=== PATIENT | male | born 1970 | race African-American/Black ===

== ENCOUNTER 2017-11-13 19:37 | Emergency (ER) | payer OTHER, SELFPAY ==
[2017-11-13 20:24] LABS: #Basophils 0.1 thou/uL (0.0-0.2); #Eosinphils 0.1 thou/uL (0.0-0.7); #Lymphocytes 1.4 thou/uL (1.20-3.40); #Monocytes 0.4 thou/uL (0.11-0.59); #Neutrophils 3.2 thou/uL (1.40-6.50); %Basophils 1.6 % (0.0-1.0); %Eosinophils 2.4 % (0.0-10.0); %Monocytes 7.5 % (0.0-10.0); %Neutrophils 61.5 % (42.0-75.0); Hemoglobin 12.5 g/dL (14.0-18.0); Mean Corpuscular HGB CONC 33.5 g/dL (32.0-36.0); Mean Corpuscular Hemoglobin 30.9 pg (27.0-31.0); Mean Corpuscular Volume 92.3 fl (80.0-94.0); Mean Platelet Volume 7.5 fL (7.4-10.4); Platelet Count 283 thou/uL (130-400); RBC Distribution Width 11.8 % (11.5-14.5); Red Blood Cell (RBC) Count 4.06 mill/uL (4.70-6.10); White Blood Cell (WBC) Count 5.1 thou/uL (4.8-10.8)
[2017-11-13 20:46] LABS: Amphetamine Not Detected (NotDetected); Barbiturates Screen Not Detected (NotDetected); Benzodiazepine Screen Not Detected (NotDetected); Cocaine Metabolite Screen Detected (NotDetected); Medtox Control Line Valid? VALID (VALID); Medtox Reader # READER 1; Methadone Not Detected (NotDetected); Methamphetamine Not Detected (NotDetected); Opiate Screen Not Detected (NotDetected); Oxycodone Screen Not Detected (NotDetected); Phencyclidine (PCP) Not Detected (NotDetected); THC/Cannabinoid Screen Not Detected (NotDetected); Tricyclic Screen Not Detected (NotDetected)
[2017-11-13 20:46] LABS: ALT (SGPT) 11 U/L (8-55); AST (SGOT) 33 U/L (5-34); Albumin 4.2 g/dL (3.5-5.0); Alkaline Phosphatase 73 U/L (40-150); Anion Gap 9 mmol/L (10-20); BUN (Urea Nitrogen) 11 mg/dL (8.9-20.6); Bilirubin, Total 0.2 mg/dL (0.2-1.2); Calc. Creatinine Clearance 0 mL/min (70-130); Calcium 9.4 mg/dL (7.8-10.44); Carbon Dioxide 25 mmol/L (22-29); Chloride 108 mmol/L (98-107); Estimated GFR-MDRD Greater than 90; Globulin 3.2 g/dL (2.4-3.5); Glucose 93 mg/dL (70-105); Potassium 4.1 mmol/L (3.5-5.1); Protein, Total 7.4 g/dL (6.0-8.3); Sodium 138 mmol/L (136-145)
[2017-11-13 20:49] LABS: Acetaminophen Less than 6.0 mcg/mL (10.0-30.0); Alcohol Less than 10 mg/dL (Less than 10); Salicylate Less than 8.0 mg/dL (15.0-30.0)
[2017-11-13] MEDS ORDERED: traMADol HCl 50 MG TAB ONE (21:15)
[2017-11-13] MEDS ORDERED: Adacel (T-DAP) 0.5 ML VIAL ONE (21:15)
--- NOTE | 2017-11-18 15:10 | EKG ---
Test Reason : FACILITATE DIAGNOSIS Blood Pressure : / mmHG Vent. Rate : 050 BPM Atrial Rate : 050 BPM P-R Int : 156 ms QRS Dur : 104 ms QT Int : 434 ms P-R-T Axes : 017 002 -41 degrees QTc Int : 395 ms Sinus bradycardia RSR' or QR pattern in V1 suggests right ventricular conduction delay Voltage criteria for left ventricular hypertrophy Cannot rule out Septal infarct , age undetermined T wave abnormality, consider inferior ischemia Abnormal ECG Confirmed by JOSE RAUL GRIER, RYAN (13), news videotape editor CHARLENE SHAVER ([id number]) on 11/18/2017 3:09:45 PM Referred By: Confirmed By:RYAN BLUNT MD
== END 2017-11-14 01:48 ==
LOC: ERS 19:37
DX: T52.0X1A Toxic effect of petroleum products, accidental (unintentional), initial encounter (principal); T22.611A Corrosion of second degree of right forearm, initial encounter; T22.631A Corrosion of second degree of right upper arm, initial encounter; T20.56XA Corrosion of first degree of forehead and cheek, initial encounter; T26.51XA Corrosion of right eyelid and periocular area, initial encounter; T32.0 Corrosions involving less than 10% of body surface; F23 Brief psychotic disorder; F14.10 Cocaine abuse, uncomplicated; E11.9 Type 2 diabetes mellitus without complications; E78.5 Hyperlipidemia, unspecified; I10 Essential (primary) hypertension; M54.30 Sciatica, unspecified side; F31.9 Bipolar disorder, unspecified; F17.210 Nicotine dependence, cigarettes, uncomplicated; Z71.6 Tobacco abuse counseling; Z23 Encounter for immunization; Z79.4 Long term (current) use of insulin
CPT/HCPCS: 16020; 36415; 80053; 80306; 80307; 82550; 85025; 90471; 90715; 93005; 96360; 99406

== ENCOUNTER 2018-12-25 11:32 | Emergency (ER) | payer SELFPAY ==
--- NOTE | 2018-12-25 12:00 | RAD ---
CHEST 1 VIEW: Date: 12/25/18 HISTORY: Chest pain on and off. COMPARISON: 01/17/12. FINDINGS: Heart size is normal. The lungs are clear. IMPRESSION: No acute intrathoracic disease. Atherosclerosis of aorta. POS: [facility]
[2018-12-25 12:01] LABS: #Eosinphils 0.1 thou/uL (0.0-0.7); #Lymphocytes 1.4 thou/uL (1.20-3.40); #Monocytes 0.4 thou/uL (0.11-0.59); #Neutrophils 2.3 thou/uL (1.40-6.50); %Basophils 1.1 % (0.0-1.0); %Eosinophils 3.1 % (0.0-10.0); %Lymphocytes 32.5 % (21.0-51.0); %Monocytes 9.6 % (0.0-10.0); %Neutrophils 53.7 % (42.0-75.0); Hemoglobin 12.8 g/dL (14.0-18.0); Mean Corpuscular HGB CONC 31.8 g/dL (32.0-36.0); Mean Corpuscular Hemoglobin 29.2 pg (27.0-31.0); Mean Corpuscular Volume 91.9 fL (78.0-98.0); Mean Platelet Volume 7.4 fL (7.4-10.4); Platelet Count 320 thou/uL (130-400); Red Blood Cell (RBC) Count 4.39 mill/uL (4.70-6.10); White Blood Cell (WBC) Count 4.3 thou/uL (4.8-10.8)
[2018-12-25 12:24] LABS: ALT (SGPT) Less than 7 U/L (8-55); AST (SGOT) 16 U/L (5-34); Albumin 3.9 g/dL (3.5-5.0); Alkaline Phosphatase 71 U/L (40-150); Anion Gap 12 mmol/L (10-20); BUN (Urea Nitrogen) 11 mg/dL (8.9-20.6); Bilirubin, Total 0.3 mg/dL (0.2-1.2); Calc. Creatinine Clearance 0 mL/min (70-130); Calcium 9.4 mg/dL (7.8-10.44); Carbon Dioxide 24 mmol/L (22-29); Chloride 103 mmol/L (98-107); Estimated GFR-MDRD Greater than 90; Globulin 2.8 g/dL (2.4-3.5); Glucose 95 mg/dL (70-105); Potassium 4.1 mmol/L (3.5-5.1); Protein, Total 6.7 g/dL (6.0-8.3); Sodium 135 mmol/L (136-145)
--- NOTE | 2018-12-28 12:54 | EKG ---
Test Reason : Blood Pressure : / mmHG Vent. Rate : 072 BPM Atrial Rate : 072 BPM P-R Int : 162 ms QRS Dur : 086 ms QT Int : 390 ms P-R-T Axes : 057 -24 023 degrees QTc Int : 427 ms Normal sinus rhythm Minimal voltage criteria for LVH, may be normal variant Septal infarct , age undetermined Abnormal ECG Confirmed by JOSE RAUL GRIER, RYAN (13), make up editor CHARLENE SHAVER ([id number]) on 12/28/2018 12:54:26 PM Referred By: Confirmed By:RYAN BLUNT MD
== END 2018-12-25 12:47 | disposition home or self-care (01) ==
LOC: ERS 11:32
DX: F14.10 Cocaine abuse, uncomplicated (principal); R07.9 Chest pain, unspecified; E11.9 Type 2 diabetes mellitus without complications; E78.5 Hyperlipidemia, unspecified; I10 Essential (primary) hypertension; F31.9 Bipolar disorder, unspecified; F17.210 Nicotine dependence, cigarettes, uncomplicated; F20.9 Schizophrenia, unspecified
CPT/HCPCS: 36415; 71045; 80053; 84484; 85025; 93005

== ENCOUNTER 2022-01-04 19:10 | Inpatient (IN) | payer SELFPAY ==
[~2022-01-04 19:10] MED LIST: ISOVUE-370 76%-LOCM 1 ML ONE
[2022-01-04 20:03] LABS: #Eosinphils 0.1 thou/uL (0.0-0.7); #Lymphocytes 1.4 thou/uL (1.20-3.40); #Monocytes 0.5 thou/uL (0.11-0.59); #Neutrophils 6.5 thou/uL (1.40-6.50); %Basophils 0.5 % (0.0-1.0); %Eosinophils 0.7 % (0.0-10.0); %Monocytes 5.6 % (0.0-10.0); %Neutrophils 77.2 % (42.0-75.0); Hemoglobin 13.8 g/dL (14.0-18.0); Mean Corpuscular HGB CONC 33.4 g/dL (32.0-36.0); Mean Corpuscular Hemoglobin 31.4 pg (27.0-31.0); Mean Platelet Volume 8.2 fL (7.4-10.4); Platelet Count 231 thou/uL (130-400); RBC Distribution Width 12.1 % (11.5-14.5); Red Blood Cell (RBC) Count 4.39 mill/uL (4.70-6.10); White Blood Cell (WBC) Count 8.4 thou/uL (4.8-10.8)
[2022-01-04] MEDS ORDERED: Lorazepam 2 MG/ML VIAL ONE (20:06)
[2022-01-04 20:24] LABS: ALT (SGPT) Less than 7 U/L (8-55); AST (SGOT) 19 U/L (5-34); Albumin 4.1 g/dL (3.5-5.0); Alkaline Phosphatase 66 U/L (40-110); Anion Gap 12 mmol/L (10-20); BUN (Urea Nitrogen) 18 mg/dL (8.9-20.6); Bilirubin, Total 0.5 mg/dL (0.2-1.2); Calc. Creatinine Clearance 0 mL/min (70-130); Calcium 9.3 mg/dL (7.8-10.44); Carbon Dioxide 27 mmol/L (22-29); Chloride 105 mmol/L (98-107); Estimated GFR 80; Globulin 2.9 g/dL (2.4-3.5); Glucose 95 mg/dL (70-105); Lipase 13 U/L (8-78); Potassium 4.2 mmol/L (3.5-5.1); Sodium 140 mmol/L (136-145)
[2022-01-04] MEDS ORDERED: Morphine 4 MG/ML VIAL ONE (22:09)
[2022-01-04] MEDS ORDERED: Dextrose 5% in Water 1,000 ML IV PRN (22:52)
[2022-01-04] MEDS ORDERED: HumaLOG 300 UNITS/3 ML VIAL SC PRN ×2 (22:52)
[2022-01-04] MEDS ORDERED: Dextrose 50% Abboject 50 ML SYRINGE SLOW IVP PRN (22:52)
[2022-01-04] MEDS ORDERED: Morphine 2 MG/ML VIAL SLOW IVP PRN (22:54)
[2022-01-04] MEDS ORDERED: Lorazepam 2 MG/ML VIAL SLOW IVP PRN (22:56)
[2022-01-04] MEDS ORDERED: hydrALAZINE 20 MG/ML VIAL ONE (23:07)
[2022-01-05 00:39] VITALS: BMI 22.4
[2022-01-05] MEDS: Labetalol HCl 100 MG/20 ML VIAL SLOW IVP PRN ×3 (00:42→11:42)
[2022-01-05] MEDS: Potassium Chloride 10 MEQ in Dextrose 5%-Lactated Ringers 1,000 ML IV SCH ×2 (00:54→11:06)
[2022-01-05 01:33] LABS: Bacteria/HPF None Seen HPF (None Seen); Bilirubin Negative (Negative); Blood, Urine Negative (Negative); Clarity Clear (Clear); Glucose, Urine (Dipstick) Normal (Negative); Ketone, Urine 10 mg/dL (Negative); Leukocyte Negative Leu/uL (Negative); Nitrite Negative (Negative); Protein, Urine (Dipstick) 30 mg/dL (Neg-Trace); RBC/HPF 0-3 HPF (0-3); Specific Gravity, Urine 1.046 (1.002-1.036); Squamous Epithelial None Seen HPF (0-3); Urobilinogen Normal mg/dL (Less than 2); WBC/HPF 0-3 HPF (0-3); pH, Urine 7.5 (5.0-9.0)
[2022-01-05 02:11] LABS: SARS-CoV-2 NAA Rapid Test Not Detected (NotDetected)
[2022-01-05] MEDS ORDERED: Morphine 2 MG/ML VIAL SLOW IVP SCH (03:15)
[2022-01-05 06:28] LABS: #Lymphocytes 1.1 thou/uL (1.20-3.40); #Monocytes 0.5 thou/uL (0.11-0.59); #Neutrophils 5.2 thou/uL (1.40-6.50); %Basophils 0.7 % (0.0-1.0); %Eosinophils 0.6 % (0.0-10.0); %Lymphocytes 16.3 % (21.0-51.0); %Monocytes 7.9 % (0.0-10.0); %Neutrophils 74.6 % (42.0-75.0); Hemoglobin 14.3 g/dL (14.0-18.0); Mean Corpuscular HGB CONC 33.1 g/dL (32.0-36.0); Mean Corpuscular Hemoglobin 31.4 pg (27.0-31.0); Mean Corpuscular Volume 94.9 fL (78.0-98.0); Mean Platelet Volume 8.5 fL (7.4-10.4); Platelet Count 245 thou/uL (130-400); RBC Distribution Width 12.1 % (11.5-14.5); Red Blood Cell (RBC) Count 4.56 mill/uL (4.70-6.10); White Blood Cell (WBC) Count 6.9 thou/uL (4.8-10.8)
[2022-01-05 06:45] LABS: ALT (SGPT) Less than 7 U/L (8-55); AST (SGOT) 17 U/L (5-34); Albumin 3.7 g/dL (3.5-5.0); Alkaline Phosphatase 72 U/L (40-110); Anion Gap 12 mmol/L (10-20); BUN (Urea Nitrogen) 12 mg/dL (8.9-20.6); Bilirubin, Total 0.6 mg/dL (0.2-1.2); Calc. Creatinine Clearance 94 mL/min (70-130); Calcium 9.2 mg/dL (7.8-10.44); Carbon Dioxide 27 mmol/L (22-29); Chloride 104 mmol/L (98-107); Estimated GFR 92; Globulin 3.2 g/dL (2.4-3.5); Glucose 123 mg/dL (70-105); Potassium 3.5 mmol/L (3.5-5.1); Protein, Total 6.9 g/dL (6.0-8.3); Sodium 139 mmol/L (136-145)
[2022-01-05] MEDS ORDERED: MD-Gastroview 120 ML BOT ONE (08:00)
[2022-01-05] MEDS ORDERED: Enoxaparin Sodium 30 MG/0.3 ML SYRINGE SC SCH (09:00)
[2022-01-05] MEDS ORDERED: cloNIDine 0.1mg/24 Hour PATCH TD SCH (09:00)
[2022-01-05] MEDS: Famotidine/PF 20 mg/2ml Vial SLOW IVP SCH ×2 (09:30→21:00)
[2022-01-05] MEDS: Nicotine 21 MG PATCH TD SCH (09:30)
[2022-01-05 16:23] LABS: #Lymphocytes 0.8 thou/uL (1.20-3.40); #Monocytes 0.5 thou/uL (0.11-0.59); #Neutrophils 6.1 thou/uL (1.40-6.50); %Basophils 0.4 % (0.0-1.0); %Eosinophils 0.4 % (0.0-10.0); %Monocytes 7.2 % (0.0-10.0); %Neutrophils 81.1 % (42.0-75.0); Hemoglobin 16.4 g/dL (14.0-18.0); Mean Corpuscular Hemoglobin 31.2 pg (27.0-31.0); Mean Corpuscular Volume 94.6 fL (78.0-98.0); Mean Platelet Volume 8.4 fL (7.4-10.4); Platelet Count 262 thou/uL (130-400); RBC Distribution Width 12.3 % (11.5-14.5); Red Blood Cell (RBC) Count 5.25 mill/uL (4.70-6.10); White Blood Cell (WBC) Count 7.5 thou/uL (4.8-10.8)
[2022-01-05 16:29] LABS: Hemoglobin A1c 5.9 % (4.0-6.0)
[2022-01-05 16:35] LABS: INR-International Normal Ratio 0.9; Prothrombin Time 12.3 sec (12.0-14.7)
[2022-01-05 16:36] LABS: PTT 26.2 sec (22.9-36.1)
[2022-01-05 16:54] LABS: Lactic Acid 1.3 mmol/L (0.5-2.2)
[2022-01-05] MEDS ORDERED: fentaNYL Citrate/PF 100 MCG/2 ML SYRINGE ONE (17:58)
[2022-01-05] MEDS ORDERED: SUGAMMADEX SODIUM 200 MG/2 ML VIAL ONE (17:58)
[2022-01-05] MEDS ORDERED: Lidocaine 1% MPF 2 ML VIAL ONE (18:00)
[2022-01-05] MEDS ORDERED: Ketamine 50 MG/ML (10ML VIAL) ONE (18:14)
[2022-01-05] MEDS ORDERED: HYDROmorphone 2 MG/ML VIAL ONE (18:15)
[2022-01-05] MEDS ORDERED: PROPOFOL 200 MG/20 ML VIAL ONE (18:18)
[2022-01-05] MEDS ORDERED: Rocuronium Bromide 10 MG/ML (10ML VIAL) ONE (18:18)
[2022-01-05] MEDS ORDERED: Ondansetron PF 4 MG/2 ML Vial ONE (18:18)
[2022-01-05] MEDS ORDERED: Lidocaine 1% PF 5 ML VIAL ONE (18:18)
[2022-01-05] MEDS ORDERED: Metoprolol Tartrate 5 MG/5 ML VIAL ONE ×2 (18:18→21:41)
[2022-01-05] MEDS ORDERED: Esmolol 100 MG/10 ML VIAL ONE (18:18)
[2022-01-05] MEDS ORDERED: Vecuronium 10 MG VIAL ONE (18:18)
[2022-01-05] MEDS ORDERED: Glycopyrrolate 0.2 MG/ML 5 ML SYRINGE ONE (18:18)
[2022-01-05] MEDS ORDERED: Ketorolac Tromethamine 30 MG/ML VIAL ONE (18:18)
[2022-01-05] MEDS ORDERED: Nitroglycerin 2% Ointment 1 INCH/1 GM Packet ONE (18:41)
[2022-01-05] MEDS ORDERED: Albumin 5% 250 ML ONE (19:44)
[2022-01-05] MEDS: Acetaminophen 325 MG TAB PO SCH (21:00)
[2022-01-05] MEDS ORDERED: Promethazine HCl 25 MG/ML VIAL IVPB PRN (21:38)
[2022-01-05] MEDS ORDERED: Promethazine HCl 25 MG/ML VIAL IM PRN (21:38)
[2022-01-05] MEDS ORDERED: Ondansetron HCl/PF 4 MG/2 ML Vial IVP PRN (21:38)
[2022-01-05] MEDS ORDERED: HYDROmorphone 2 MG/ML VIAL SLOW IVP PRN (21:38)
[2022-01-05] MEDS ORDERED: hydrALAZINE 20 MG/ML VIAL ONE (21:41)
[2022-01-05] MEDS ORDERED: cloNIDine 0.1 MG TAB ONE ×2 (22:06)
[2022-01-05] MEDS: cloNIDine 0.2 MG TAB PO SCH (22:09)
[2022-01-06] MEDS: Potassium Chloride 10 MEQ in Dextrose 5%-Lactated Ringers 1,000 ML IV SCH ×4 (00:22→22:40)
[2022-01-06] MEDS: Ketorolac Tromethamine 30 MG/ML VIAL IVP SCH ×5 (00:26→23:43)
[2022-01-06] MEDS: Morphine 4 MG/ML VIAL SLOW IVP PRN ×4 (01:02→21:03)
[2022-01-06] MEDS: Acetaminophen 325 MG TAB PO SCH ×4 (04:30→20:43)
[2022-01-06] MEDS: cloNIDine 0.2 MG TAB PO SCH ×4 (04:30→21:03)
[2022-01-06 05:13] LABS: #Lymphocytes 0.5 thou/uL (1.20-3.40); #Monocytes 0.7 thou/uL (0.11-0.59); #Neutrophils 6.5 thou/uL (1.40-6.50); %Lymphocytes 6.6 % (21.0-51.0); %Monocytes 8.9 % (0.0-10.0); %Neutrophils 84.4 % (42.0-75.0); Hemoglobin 13.5 g/dL (14.0-18.0); Mean Corpuscular HGB CONC 32.7 g/dL (32.0-36.0); Mean Corpuscular Volume 94.8 fL (78.0-98.0); Mean Platelet Volume 8.6 fL (7.4-10.4); Platelet Count 211 thou/uL (130-400); RBC Distribution Width 12.2 % (11.5-14.5); Red Blood Cell (RBC) Count 4.36 mill/uL (4.70-6.10); White Blood Cell (WBC) Count 7.7 thou/uL (4.8-10.8)
[2022-01-06 05:44] LABS: ALT (SGPT) 43 U/L (8-55); AST (SGOT) 118 U/L (5-34); Albumin 3.2 g/dL (3.5-5.0); Alkaline Phosphatase 47 U/L (40-110); Anion Gap 13 mmol/L (10-20); BUN (Urea Nitrogen) 20 mg/dL (8.9-20.6); Bilirubin, Total 0.7 mg/dL (0.2-1.2); Calc. Creatinine Clearance 82 mL/min (70-130); Calcium 8.4 mg/dL (7.8-10.44); Carbon Dioxide 22 mmol/L (22-29); Chloride 108 mmol/L (98-107); Estimated GFR 78; Globulin 2.5 g/dL (2.4-3.5); Glucose 144 mg/dL (70-105); Magnesium 1.5 mg/dL (1.6-2.6); Potassium 4.1 mmol/L (3.5-5.1); Protein, Total 5.7 g/dL (6.0-8.3); Sodium 139 mmol/L (136-145)
[2022-01-06] MEDS ORDERED: Magnesium 2 GM/50 ML(in water) 3 GM in Premix Bag 1 BAG IVPB SCH (07:45)
[2022-01-06] MEDS ORDERED: MD-Gastroview 120 ML BOT ONE (08:00)
[2022-01-06] MEDS: Nicotine 21 MG PATCH TD SCH (09:20)
[2022-01-06] MEDS: Famotidine/PF 20 mg/2ml Vial SLOW IVP SCH ×2 (09:20→20:42)
[2022-01-06] MEDS: Enoxaparin Sodium 40 MG/0.4 ML SYRINGE SC SCH (09:20)
[2022-01-06] MEDS ORDERED: Sodium Chloride 0.9% 1,000 ML IV SCH (15:30)
[2022-01-06] MEDS: Ondansetron PF 4 MG/2 ML Vial IVP PRN (15:47)
[2022-01-06] MEDS ORDERED: Lactated Ringer's 1,000 ML IV SCH (20:15)
[2022-01-07] MEDS: Acetaminophen 325 MG TAB PO SCH ×4 (04:38→21:26)
[2022-01-07] MEDS: cloNIDine 0.2 MG TAB PO SCH ×4 (04:39→21:26)
[2022-01-07] MEDS: Potassium Chloride 10 MEQ in Dextrose 5%-Lactated Ringers 1,000 ML IV SCH (04:39)
[2022-01-07 05:08] LABS: #Lymphocytes 0.8 thou/uL (1.20-3.40); #Monocytes 0.8 thou/uL (0.11-0.59); %Basophils 0.3 % (0.0-1.0); %Eosinophils 0.2 % (0.0-10.0); %Lymphocytes 8.9 % (21.0-51.0); %Neutrophils 81.5 % (42.0-75.0); Hemoglobin 11.4 g/dL (14.0-18.0); Mean Corpuscular HGB CONC 32.3 g/dL (32.0-36.0); Mean Corpuscular Hemoglobin 31.3 pg (27.0-31.0); Mean Platelet Volume 8.3 fL (7.4-10.4); Platelet Count 189 thou/uL (130-400); RBC Distribution Width 12.3 % (11.5-14.5); Red Blood Cell (RBC) Count 3.64 mill/uL (4.70-6.10); White Blood Cell (WBC) Count 8.6 thou/uL (4.8-10.8)
[2022-01-07] MEDS: Ketorolac Tromethamine 30 MG/ML VIAL IVP SCH (05:50)
[2022-01-07 06:18] LABS: Anion Gap 11 mmol/L (10-20); BUN (Urea Nitrogen) 32 mg/dL (8.9-20.6); Calc. Creatinine Clearance 63 mL/min (70-130); Calcium 8.7 mg/dL (7.8-10.44); Carbon Dioxide 25 mmol/L (22-29); Chloride 108 mmol/L (98-107); Estimated GFR 57; Glucose 126 mg/dL (70-105); Magnesium 2.4 mg/dL (1.6-2.6); Phosphorus 2.6 mg/dL (2.3-4.7); Potassium 4.1 mmol/L (3.5-5.1); Sodium 140 mmol/L (136-145)
[2022-01-07] MEDS: Nicotine 21 MG PATCH TD SCH (08:05)
[2022-01-07] MEDS: Enoxaparin Sodium 40 MG/0.4 ML SYRINGE SC SCH (08:05)
[2022-01-07] MEDS: Famotidine/PF 20 mg/2ml Vial SLOW IVP SCH (08:05)
[2022-01-07] MEDS ORDERED: Potassium Chloride 10 MEQ in Dextrose 5%-Lactated Ringers 1,000 ML IV SCH (08:55)
[2022-01-07] MEDS ORDERED: Pantoprazole 40 MG VIAL IVP SCH (09:30)
[2022-01-07] MEDS: Sodium Chloride 0.9% 1,000 ML IV SCH ×4 (11:55→23:43)
[2022-01-07] MEDS: Fentanyl 100 MCG/2 ML VIAL SLOW IVP PRN (20:37)
[2022-01-07] MEDS: Pantoprazole 40 MG VIAL IVP SCH (20:41)
[2022-01-08] MEDS: cloNIDine 0.2 MG TAB PO SCH ×4 (04:08→20:27)
[2022-01-08] MEDS: Acetaminophen 325 MG TAB PO SCH ×4 (04:09→20:27)
[2022-01-08] MEDS ORDERED: VANCOMYCIN 1.25 GM/250 ML BAG IVPB SCH (04:45)
[2022-01-08] MEDS ORDERED: Vancomycin 1.5 GRAM/300 ML BAG 1.5 GM in Premix Bag 1 BAG IVPB SCH (05:00)
[2022-01-08 05:16] LABS: Bacteria/HPF 1+ HPF (None Seen); Bilirubin Negative (Negative); Blood, Urine 1+ (Negative); Clarity Clear (Clear); Glucose, Urine (Dipstick) Normal (Negative); Ketone, Urine Trace mg/dL (Negative); Leukocyte Negative Leu/uL (Negative); Nitrite Negative (Negative); Protein, Urine (Dipstick) 50 mg/dL (Neg-Trace); RBC/HPF 0-3 HPF (0-3); Specific Gravity, Urine 1.026 (1.002-1.036); Squamous Epithelial None Seen HPF (0-3); Urobilinogen Normal mg/dL (Less than 2)
[2022-01-08 05:17] LABS: Urine Culture Reflex Yes Yes
[2022-01-08 05:20] LABS: #Lymphocytes 0.6 thou/uL (1.20-3.40); #Monocytes 0.6 thou/uL (0.11-0.59); #Neutrophils 6.9 thou/uL (1.40-6.50); %Eosinophils 0.4 % (0.0-10.0); %Lymphocytes 6.9 % (21.0-51.0); %Monocytes 7.1 % (0.0-10.0); %Neutrophils 85.6 % (42.0-75.0); Mean Corpuscular HGB CONC 32.8 g/dL (32.0-36.0); Mean Corpuscular Hemoglobin 31.6 pg (27.0-31.0); Mean Corpuscular Volume 96.2 fL (78.0-98.0); Mean Platelet Volume 8.3 fL (7.4-10.4); Platelet Count 203 thou/uL (130-400); RBC Distribution Width 12.1 % (11.5-14.5); Red Blood Cell (RBC) Count 3.15 mill/uL (4.70-6.10); White Blood Cell (WBC) Count 8.1 thou/uL (4.8-10.8)
[2022-01-08 05:29] LABS: Lactic Acid 0.7 mmol/L (0.5-2.2)
[2022-01-08] MEDS: Sodium Chloride 0.9% 1,000 ML IV SCH ×2 (05:34→11:55)
[2022-01-08 05:45] LABS: ALT (SGPT) 18 U/L (8-55); AST (SGOT) 39 U/L (5-34); Albumin 2.9 g/dL (3.5-5.0); Alkaline Phosphatase 49 U/L (40-110); Anion Gap 12 mmol/L (10-20); BUN (Urea Nitrogen) 22 mg/dL (8.9-20.6); Bilirubin, Total 0.5 mg/dL (0.2-1.2); Calc. Creatinine Clearance 88 mL/min (70-130); Calcium 8.6 mg/dL (7.8-10.44); Carbon Dioxide 22 mmol/L (22-29); Chloride 111 mmol/L (98-107); Estimated GFR 86; Globulin 3.1 g/dL (2.4-3.5); Glucose 139 mg/dL (70-105); Magnesium 2.2 mg/dL (1.6-2.6); Potassium 3.7 mmol/L (3.5-5.1); Sodium 141 mmol/L (136-145)
[2022-01-08] MEDS ORDERED: Piperacillin/Tazobactam 3.375 GM in Sodium Chloride 0.9% 100 ML IVPB SCH (06:00)
[2022-01-08] MEDS: Morphine 4 MG/ML VIAL SLOW IVP PRN ×3 (08:02→20:28)
[2022-01-08] MEDS: Enoxaparin Sodium 40 MG/0.4 ML SYRINGE SC SCH (08:03)
[2022-01-08] MEDS: Pantoprazole 40 MG VIAL IVP SCH ×2 (08:03→20:29)
[2022-01-08] MEDS: Nicotine 21 MG PATCH TD SCH (08:03)
[2022-01-08] MEDS: Piperacillin/Tazobactam 3.375 GM in Sodium Chloride 0.9% 100 ML IVPB SCH ×2 (11:00→18:13)
[2022-01-08] MEDS: Ondansetron PF 4 MG/2 ML Vial IVP PRN (15:18)
[2022-01-08] MEDS: Lactated Ringer's 1,000 ML IV SCH ×2 (15:18→23:50)
[2022-01-08] MEDS: Vancomycin 1 GM in Premix Bag 1 BAG IVPB SCH (18:13)
[2022-01-09] MEDS: Morphine 4 MG/ML VIAL SLOW IVP PRN ×2 (00:17→19:41)
[2022-01-09] MEDS: cloNIDine 0.2 MG TAB PO SCH ×3 (03:36→23:57)
[2022-01-09] MEDS: Acetaminophen 325 MG TAB PO SCH ×4 (03:36→20:26)
[2022-01-09] MEDS: Piperacillin/Tazobactam 3.375 GM in Sodium Chloride 0.9% 100 ML IVPB SCH ×3 (03:36→17:17)
[2022-01-09] MEDS: Vancomycin 1 GM in Premix Bag 1 BAG IVPB SCH ×2 (05:49→18:43)
[2022-01-09 06:05] LABS: Band 12 % (5-11); Eosinophils 2 % (0-10); Hemoglobin 9.5 g/dL (14.0-18.0); Hypochromia SLIGHT = 6-15 cells (100X) (0-5/hpf); Lymphocytes 11 % (21-51); MDiff Complete? YES; Mean Corpuscular HGB CONC 32.6 g/dL (32.0-36.0); Mean Corpuscular Hemoglobin 31.5 pg (27.0-31.0); Mean Corpuscular Volume 96.9 fL (78.0-98.0); Mean Platelet Volume 9.8 fL (7.4-10.4); Monocytes 8 % (0-10); Neutrophil 67 % (42-75); Platelet Count 184 thou/uL (130-400); Platelet Morphology Comment Appears Adequate; RBC Distribution Width 12.3 % (11.5-14.5); Red Blood Cell (RBC) Count 3.02 mill/uL (4.70-6.10); White Blood Cell (WBC) Count 5.9 thou/uL (4.8-10.8)
[2022-01-09 06:15] LABS: ALT (SGPT) 14 U/L (8-55); AST (SGOT) 27 U/L (5-34); Albumin 2.8 g/dL (3.5-5.0); Alkaline Phosphatase 44 U/L (40-110); Anion Gap 12 mmol/L (10-20); BUN (Urea Nitrogen) 16 mg/dL (8.9-20.6); Bilirubin, Total 0.6 mg/dL (0.2-1.2); Calc. Creatinine Clearance 105 mL/min (70-130); Calcium 8.9 mg/dL (7.8-10.44); Carbon Dioxide 22 mmol/L (22-29); Chloride 109 mmol/L (98-107); Estimated GFR 104; Globulin 3.3 g/dL (2.4-3.5); Glucose 88 mg/dL (70-105); Magnesium 2.2 mg/dL (1.6-2.6); Potassium 3.8 mmol/L (3.5-5.1); Protein, Total 6.1 g/dL (6.0-8.3); Sodium 139 mmol/L (136-145)
[2022-01-09] MEDS: Pantoprazole 40 MG VIAL IVP SCH ×2 (09:11→19:42)
[2022-01-09] MEDS: Nicotine 21 MG PATCH TD SCH (09:11)
[2022-01-09] MEDS: Enoxaparin Sodium 40 MG/0.4 ML SYRINGE SC SCH (09:11)
[2022-01-09] MEDS: Fentanyl 100 MCG/2 ML VIAL SLOW IVP PRN (10:34)
[2022-01-09] MEDS: Lactated Ringer's 1,000 ML IV SCH (10:47)
[2022-01-09] MEDS: cloNIDine 0.1 MG TAB PO SCH ×2 (14:41→17:17)
[2022-01-09 17:04] LABS: Vancomycin, Trough 8.3 ug/mL
[2022-01-09] MEDS: traMADol HCl 50 MG TAB PO SCH ×2 (17:17→23:56)
[2022-01-09] MEDS: Vancomycin 1.5 GRAM/300 ML BAG 1.5 GM in Premix Bag 1 BAG IVPB SCH (18:40)
[2022-01-09] MEDS ORDERED: Benzocaine 20% Spray 60 ML CAN PO SCH (18:47)
[2022-01-09] MEDS ORDERED: Lidocaine 2% Jelly 5 ML TUBE TOP SCH (19:00)
[2022-01-09] MEDS: Senokot S 8.6-50 MG TAB PO SCH (20:22)
[2022-01-10] MEDS: Morphine 4 MG/ML VIAL SLOW IVP PRN ×3 (00:26→19:50)
[2022-01-10] MEDS: Piperacillin/Tazobactam 3.375 GM in Sodium Chloride 0.9% 100 ML IVPB SCH ×4 (03:13→20:16)
[2022-01-10] MEDS: Acetaminophen 325 MG TAB PO SCH ×4 (03:14→19:51)
[2022-01-10] MEDS: traMADol HCl 50 MG TAB PO SCH ×3 (05:22→18:41)
[2022-01-10] MEDS: cloNIDine 0.2 MG TAB PO SCH ×3 (05:22→18:42)
[2022-01-10] MEDS: hydrALAZINE 20 MG/ML VIAL SLOW IVP PRN ×2 (05:23→10:22)
[2022-01-10 05:46] LABS: #Eosinphils 0.2 thou/uL (0.0-0.7); #Neutrophils 5.4 thou/uL (1.40-6.50); %Basophils 0.2 % (0.0-1.0); %Eosinophils 2.8 % (0.0-10.0); %Lymphocytes 12.7 % (21.0-51.0); %Monocytes 13.4 % (0.0-10.0); %Neutrophils 70.9 % (42.0-75.0); Hemoglobin 10.2 g/dL (14.0-18.0); Mean Corpuscular HGB CONC 32.9 g/dL (32.0-36.0); Mean Corpuscular Hemoglobin 31.7 pg (27.0-31.0); Mean Corpuscular Volume 96.4 fL (78.0-98.0); Mean Platelet Volume 8.1 fL (7.4-10.4); Platelet Count 291 thou/uL (130-400); RBC Distribution Width 12.2 % (11.5-14.5); Red Blood Cell (RBC) Count 3.21 mill/uL (4.70-6.10); White Blood Cell (WBC) Count 7.5 thou/uL (4.8-10.8)
[2022-01-10 06:12] LABS: Anion Gap 14 mmol/L (10-20); BUN (Urea Nitrogen) 13 mg/dL (8.9-20.6); Calc. Creatinine Clearance 113 mL/min (70-130); Carbon Dioxide 23 mmol/L (22-29); Estimated GFR 107; Glucose 93 mg/dL (70-105); Magnesium 1.9 mg/dL (1.6-2.6); Potassium 3.4 mmol/L (3.5-5.1); Sodium 140 mmol/L (136-145)
[2022-01-10 06:15] LABS: Chloride 106 mmol/L (98-107)
[2022-01-10] MEDS: Vancomycin 1.5 GRAM/300 ML BAG 1.5 GM in Premix Bag 1 BAG IVPB SCH ×2 (06:33→18:46)
[2022-01-10] MEDS ORDERED: Lactated Ringer's 1,000 ML IV SCH (07:30)
[2022-01-10] MEDS ORDERED: Potassium Chloride 20 MEQ TAB PO SCH (08:00)
[2022-01-10] MEDS ORDERED: Magnesium 2 GM/50 ML(in water) 2 GM in Premix Bag 1 BAG IVPB SCH (08:00)
[2022-01-10] MEDS: Enoxaparin Sodium 40 MG/0.4 ML SYRINGE SC SCH (10:19)
[2022-01-10] MEDS: Nicotine 21 MG PATCH TD SCH (10:19)
[2022-01-10] MEDS: Senokot S 8.6-50 MG TAB PO SCH ×2 (10:20→19:51)
[2022-01-10] MEDS: Pantoprazole 40 MG VIAL IVP SCH ×2 (10:21→19:50)
[2022-01-10] MEDS: D5 1/2 NS w/20 mEq KCL 1,000 ML IV SCH ×2 (11:06→18:04)
[2022-01-10] MEDS: Polyethylene Glycol 3350 17 GM Packet PO SCH (11:38)
[2022-01-10] MEDS ORDERED: Potassium Chloride 20 MEQ in Premix Bag 1 BAG IVPB PRN (18:25)
[2022-01-10] MEDS: Potassium Chloride 20 MEQ in Premix Bag 1 BAG IVPB SCH (22:34)
[2022-01-11] MEDS: Potassium Chloride 20 MEQ in Premix Bag 1 BAG IVPB SCH (00:08)
[2022-01-11] MEDS: cloNIDine 0.2 MG TAB PO SCH ×5 (00:32→23:37)
[2022-01-11] MEDS: traMADol HCl 50 MG TAB PO SCH ×5 (00:32→23:37)
[2022-01-11] MEDS: Potassium Chloride 20 MEQ in Sodium Chloride 0.9% 250 ML 250 ML IVPB PRN ×2 (00:33→03:04)
[2022-01-11] MEDS: Morphine 4 MG/ML VIAL SLOW IVP PRN (00:33)
[2022-01-11] MEDS: Acetaminophen 325 MG TAB PO SCH ×4 (03:04→21:03)
[2022-01-11] MEDS: Piperacillin/Tazobactam 3.375 GM in Sodium Chloride 0.9% 100 ML IVPB SCH (03:04)
[2022-01-11] MEDS: D5 1/2 NS w/20 mEq KCL 1,000 ML IV SCH (03:05)
[2022-01-11 05:12] LABS: #Eosinphils 0.2 thou/uL (0.0-0.7); #Lymphocytes 0.8 thou/uL (1.20-3.40); #Neutrophils 6.5 thou/uL (1.40-6.50); %Basophils 0.3 % (0.0-1.0); %Eosinophils 1.9 % (0.0-10.0); %Lymphocytes 9.8 % (21.0-51.0); %Monocytes 11.7 % (0.0-10.0); %Neutrophils 76.3 % (42.0-75.0); Hemoglobin 9.5 g/dL (14.0-18.0); Mean Corpuscular Hemoglobin 31.3 pg (27.0-31.0); Mean Corpuscular Volume 94.6 fL (78.0-98.0); Mean Platelet Volume 7.9 fL (7.4-10.4); Platelet Count 328 thou/uL (130-400); RBC Distribution Width 12.2 % (11.5-14.5); Red Blood Cell (RBC) Count 3.05 mill/uL (4.70-6.10); White Blood Cell (WBC) Count 8.6 thou/uL (4.8-10.8)
[2022-01-11 05:30] LABS: Vancomycin, Trough 10.5 ug/mL
[2022-01-11 05:32] LABS: Anion Gap 11 mmol/L (10-20); BUN (Urea Nitrogen) 9 mg/dL (8.9-20.6); Calc. Creatinine Clearance 127 mL/min (70-130); Calcium 8.4 mg/dL (7.8-10.44); Carbon Dioxide 23 mmol/L (22-29); Chloride 106 mmol/L (98-107); Estimated GFR 110; Glucose 141 mg/dL (70-105); Magnesium 2.1 mg/dL (1.6-2.6); Potassium 3.9 mmol/L (3.5-5.1); Sodium 136 mmol/L (136-145)
[2022-01-11] MEDS ORDERED: VANCOMYCIN 1.25 GM/250 ML BAG 1.25 GM in Premix Bag 1 BAG IVPB SCH (06:00)
[2022-01-11] MEDS: Polyethylene Glycol 3350 17 GM Packet PO SCH (09:41)
[2022-01-11] MEDS: Senokot S 8.6-50 MG TAB PO SCH ×2 (09:42→23:17)
[2022-01-11] MEDS: Nicotine 21 MG PATCH TD SCH (09:42)
[2022-01-11] MEDS: Pantoprazole 40 MG VIAL IVP SCH ×2 (09:44→21:03)
[2022-01-11] MEDS: Enoxaparin Sodium 40 MG/0.4 ML SYRINGE SC SCH (09:50)
[2022-01-12] MEDS: D5 1/2 NS w/20 mEq KCL 1,000 ML IV SCH (02:26)
[2022-01-12] MEDS: Acetaminophen 325 MG TAB PO SCH ×2 (03:43→08:43)
[2022-01-12] MEDS: cloNIDine 0.2 MG TAB PO SCH ×2 (05:07→12:16)
[2022-01-12] MEDS: traMADol HCl 50 MG TAB PO SCH ×2 (05:07→12:15)
[2022-01-12 05:44] LABS: #Eosinphils 0.2 thou/uL (0.0-0.7); #Monocytes 0.9 thou/uL (0.11-0.59); %Basophils 0.2 % (0.0-1.0); %Eosinophils 1.9 % (0.0-10.0); %Lymphocytes 11.1 % (21.0-51.0); %Monocytes 10.2 % (0.0-10.0); %Neutrophils 76.6 % (42.0-75.0); Hemoglobin 10.5 g/dL (14.0-18.0); Mean Corpuscular HGB CONC 32.4 g/dL (32.0-36.0); Mean Corpuscular Hemoglobin 30.8 pg (27.0-31.0); Mean Platelet Volume 7.8 fL (7.4-10.4); Platelet Count 427 thou/uL (130-400); RBC Distribution Width 12.4 % (11.5-14.5); Red Blood Cell (RBC) Count 3.39 mill/uL (4.70-6.10); White Blood Cell (WBC) Count 9.2 thou/uL (4.8-10.8)
[2022-01-12 05:59] LABS: Anion Gap 14 mmol/L (10-20); BUN (Urea Nitrogen) 8 mg/dL (8.9-20.6); Calc. Creatinine Clearance 122 mL/min (70-130); Calcium 8.7 mg/dL (7.8-10.44); Carbon Dioxide 22 mmol/L (22-29); Chloride 104 mmol/L (98-107); Estimated GFR 109; Glucose 123 mg/dL (70-105); Magnesium 1.9 mg/dL (1.6-2.6); Potassium 3.7 mmol/L (3.5-5.1); Sodium 136 mmol/L (136-145)
[2022-01-12 06:02] LABS: Phosphorus 3.4 mg/dL (2.3-4.7)
[2022-01-12] MEDS: Enoxaparin Sodium 40 MG/0.4 ML SYRINGE SC SCH (08:39)
[2022-01-12] MEDS: Nicotine 21 MG PATCH TD SCH (08:39)
[2022-01-12] MEDS: Senokot S 8.6-50 MG TAB PO SCH (08:40)
[2022-01-12] MEDS: Polyethylene Glycol 3350 17 GM Packet PO SCH (08:40)
[2022-01-12] MEDS: Pantoprazole 40 MG VIAL IVP SCH (08:40)
[2022-01-12] MEDS: hydrALAZINE 20 MG/ML VIAL SLOW IVP PRN (08:41)
[2022-01-12 12:45] VITALS: BP 145/96; TEMP 98.3
== END 2022-01-12 14:06 | disposition home or self-care (01) | DRG 329 ==
LOC: ERS 19:10 → SJJU 22:39
PROVIDERS: ADMIT Internal Medicine; ATTEND Internal Medicine
PROC: 0DB80ZZ Excision of Small Intestine, Open Approach (ICD-10-PCS; principal; 2022-01-05)
PROC: 0DH67UZ Insertion of Feeding Device into Stomach, Via Natural or Artificial Opening (ICD-10-PCS; 2022-01-05)
PROC: 3E0G76Z Introduction of Nutritional Substance into Upper GI, Via Natural or Artificial Opening (ICD-10-PCS; 2022-01-05)
DX: K56.51 Intestinal adhesions [bands], with partial obstruction (principal); J18.9 Pneumonia, unspecified organism; N17.9 Acute kidney failure, unspecified; J98.11 Atelectasis; Z20.822 Contact with and (suspected) exposure to COVID-19; I16.0 Hypertensive urgency; E11.9 Type 2 diabetes mellitus without complications; E78.5 Hyperlipidemia, unspecified; I10 Essential (primary) hypertension; R45.1 Restlessness and agitation; M54.30 Sciatica, unspecified side; F25.9 Schizoaffective disorder, unspecified; F17.210 Nicotine dependence, cigarettes, uncomplicated; K56.7 Ileus, unspecified; F14.10 Cocaine abuse, uncomplicated; E87.8 Other disorders of electrolyte and fluid balance, not elsewhere classified; E87.6 Hypokalemia; E83.42 Hypomagnesemia; J45.909 Unspecified asthma, uncomplicated; Z90.5 Acquired absence of kidney; Z88.6 Allergy status to analgesic agent; Z88.8 Allergy status to other drugs, medicaments and biological substances; Z71.51 Drug abuse counseling and surveillance of drug abuser
CPT/HCPCS: 36415; 36416; 71045; 74018; 74022; 74177; 74250; 80048; 80053; 80202; 81001; 83036; 83605; 83690; 83735; 84100; 84484; 85025; 85610; 85730; 86850; 86900; 86901; 87086; 88307; 93005; 96374; 96375; A4649; C1776; C9113; J0360; J1170; J1642; J1650; J1885; J2060; J2270; J2405; J2543; J2704; J2710; J3010; J3370; J3475; J3480; J3490; J7050; J7120; P9045; Q9963; Q9966; S0028; U0002; U0003; U0005

== ENCOUNTER 2025-02-11 02:40 | Inpatient (IN) | payer OTHER ==
[2025-02-11] MEDS ORDERED: Ondansetron PF 4 MG/2 ML Vial ONE (02:49)
[2025-02-11 03:00] LABS: #Basophils 0.05 10x3/uL (0.0-0.2); #Eosinophils 0.05 10x3/uL (0.0-0.7); #Monocytes 0.44 10x3/uL (0.11-0.59); #Neutrophils 4.55 10x3/uL (1.40-6.50); %Basophils 0.7 % (0.0-1.0); %Eosinophils 0.7 % (0.0-10.0); %Lymphocytes 29.2 % (21.0-51.0); %Monocytes 6.1 % (0.0-10.0); %Neutrophils 63.0 % (42.0-75.0); Hematocrit 37.0 % (42.0-52.0); Hemoglobin 12.1 g/dL (14.0-18.0); Mean Corpuscular Hemoglobin 29.2 pg (27.0-31.0); Mean Corpuscular Volume 89.4 fL (78.0-98.0); Platelet Count 332 10x3/uL (130-400); Red Blood Cell (RBC) Count 4.14 mill/uL (4.70-6.10); White Blood Cell (WBC) Count 7.22 10x3/uL (4.8-10.8)
[2025-02-11] MEDS ORDERED: Nitroglycerin 2% Ointment 1 INCH/1 GM Packet ONE (03:17)
[2025-02-11 03:28] LABS: Actual Bicarbonate (HCO3v) 18.8 mEq/L (22-28); Base Excess -4.0 mEq/L (-2.0 to +3.0); Calcium, Ionized (venous) 1.12 mmol/L (1.16-1.32); Chloride (VBG) 111 mmol/L (98-106); Hematocrit-VBG 37 % (42.0-52.0); Hemoglobin (Hb) 12.7 g/dL (13.1-17.2); Potassium (VBG) 4.14 mmol/L (3.70-5.30); Sodium 138 mmol/L (133-146)
[2025-02-11 03:31] LABS: ALT (SGPT) 28 U/L (Less than 45); AST (SGOT) 85 U/L (11-34); Albumin 3.0 g/dL (3.1-4.5); Alkaline Phosphatase 96 U/L (40-110); Anion Gap 14 mmol/L (10-20); BUN (Urea Nitrogen) 25 mg/dL (8.4-25.7); Bilirubin, Total 0.6 mg/dL (0.3-1.2); Calc. Creatinine Clearance 0 mL/min (70-130); Calcium 8.4 mg/dL (7.8-10.44); Carbon Dioxide 19 mmol/L (22-29); Chloride 113 mmol/L (98-107); Globulin 3.5 g/dL (2.4-3.5); Glucose 130 mg/dL (70-105); Lipase 33 U/L (8-78); Magnesium 2.0 mg/dL (1.6-2.6); Potassium 4.6 mmol/L (3.5-5.1); Sodium 141 mmol/L (136-145)
[2025-02-11 03:43] LABS: Troponin I 5.622 ng/mL (< 0.028)
[2025-02-11] MEDS ORDERED: cefTRIAXone (ROCEPHIN) 1 GM VIAL ONE (03:46)
[2025-02-11] MEDS ORDERED: Furosemide 20 MG (2 mL) VIAL ONE ×2 (03:46→04:54)
[2025-02-11] MEDS ORDERED: Heparin 25,000 UNITS/D5W 500 ml bag ONE (04:20)
[2025-02-11] MEDS ORDERED: Heparin 10,000 UNITS/ 10 ML VIAL ONE (04:20)
[2025-02-11 04:49] LABS: INR-International Normal Ratio 1.1; Prothrombin Time 14.1 sec (12.0-14.7)
[2025-02-11 04:50] LABS: PTT 27.4 sec (22.9-36.1)
[2025-02-11] MEDS ORDERED: Ondansetron PF 4 MG/2 ML Vial IVP PRN (05:11)
[2025-02-11] MEDS ORDERED: Dextrose 50% Abboject 50 ML SYRINGE SLOW IVP PRN (05:16)
[2025-02-11] MEDS ORDERED: Glucagon 1 MG/ML KIT IM PRN (05:16)
[2025-02-11 05:22] LABS: Acetaminophen Less than 10 mcg/mL (Less than 10); Salicylate Less than 8.0 mg/dL (Less than 8.0)
[2025-02-11 05:32] LABS: Critical Call Chem Troponin I RESULT DECREASING; Troponin I 5.049 ng/mL (< 0.028)
[2025-02-11] MEDS ORDERED: Nitroglycerin 50 MG/250 ML BOT 250 ML ONE (05:36)
[2025-02-11 05:53] LABS: Cocaine Metabolite Screen PRELIM POSITIVE (Negative); THC/Cannabinoid Screen Negative (Negative); Tricyclic Screen Negative (Negative)
[2025-02-11] MEDS: Lisinopril 20 MG TAB PO SCH ×2 (07:43→20:24)
[2025-02-11 07:45] LABS: Critical Call Chem Troponin I RESULT DECREASING; Troponin I 4.367 ng/mL (< 0.028)
[2025-02-11] MEDS ORDERED: Lisinopril 20 MG TAB ONE (07:51)
[2025-02-11] MEDS: Pantoprazole 40 MG DR.TAB PO SCH (09:56)
[2025-02-11] MEDS ORDERED: Pantoprazole 40 MG DR.TAB ONE (10:00)
[2025-02-11] MEDS ORDERED: Iopamidol 370 76% 100 ML VIAL ONE (10:03)
[2025-02-11] MEDS: Senokot S 8.6-50 MG TAB PO SCH (11:23)
[2025-02-11] MEDS: Acetaminophen 325 MG TAB PO PRN (12:41)
[2025-02-11 13:38] LABS: Bacteria/HPF None Seen HPF (None Seen); CAUTI Indications for Culture Alt mental st,lethar; Glucose, Urine (Dipstick) Normal (Negative); Leukocyte Negative Leu/uL (Negative); Protein, Urine (Dipstick) 50 mg/dL (Neg-Trace); RBC/HPF 0-3 HPF (0-3); Specific Gravity, Urine 1.028 (1.002-1.036); WBC/HPF 0-3 HPF (0-3)
[2025-02-11 13:42] LABS: Urine Culture Reflex No No
[2025-02-11 14:11] LABS: Hematocrit 35.2 % (42.0-52.0); Hemoglobin 11.4 g/dL (14.0-18.0); Platelet Count 322 10x3/uL (130-400)
[2025-02-11] MEDS: Furosemide 40 MG (4 mL) VIAL SLOW IVP SCH (14:39)
[2025-02-11] MEDS: Heparin 10,000 UNITS/ 10 ML VIAL SLOW IVP SCH (14:39)
[2025-02-11] MEDS: Nitroglycerin 50 MG/250 ML BOT 250 ML IVPB SCH (14:40)
[2025-02-11] MEDS: Fioricet 325/50/40 mg Tablet PO PRN (15:19)
[2025-02-11] MEDS: PNEUMOC 20-VAL CONJ-DIP CRM/PF 0.5 ML SYRINGE IM ONE (18:07)
[2025-02-12 04:58] LABS: #Basophils 0.05 10x3/uL (0.0-0.2); #Eosinophils 0.10 10x3/uL (0.0-0.7); #Monocytes 0.73 10x3/uL (0.11-0.59); #Neutrophils 6.67 10x3/uL (1.40-6.50); %Basophils 0.6 % (0.0-1.0); %Eosinophils 1.1 % (0.0-10.0); %Lymphocytes 13.4 % (21.0-51.0); %Monocytes 8.3 % (0.0-10.0); %Neutrophils 76.3 % (42.0-75.0); Hematocrit 35.6 % (42.0-52.0); Hemoglobin 11.5 g/dL (14.0-18.0); Mean Corpuscular Hemoglobin 29.3 pg (27.0-31.0); Mean Corpuscular Volume 90.6 fL (78.0-98.0); Platelet Count 294 10x3/uL (130-400); Red Blood Cell (RBC) Count 3.93 mill/uL (4.70-6.10); White Blood Cell (WBC) Count 8.75 10x3/uL (4.8-10.8)
[2025-02-12 05:20] LABS: Anion Gap 11 mmol/L (10-20); BUN (Urea Nitrogen) 25 mg/dL (8.4-25.7); Calc. Creatinine Clearance 70 mL/min (70-130); Calcium 8.1 mg/dL (7.8-10.44); Carbon Dioxide 24 mmol/L (22-29); Chloride 107 mmol/L (98-107); Glucose 133 mg/dL (70-105); Magnesium 1.8 mg/dL (1.6-2.6); Potassium 4.0 mmol/L (3.5-5.1); Sodium 138 mmol/L (136-145)
[2025-02-12 05:22] LABS: ALT (SGPT) 23 U/L (Less than 45); AST (SGOT) 55 U/L (11-34); Albumin 2.7 g/dL (3.1-4.5); Alkaline Phosphatase 87 U/L (40-110); Bilirubin, Direct 0.1 mg/dL (0.1-0.3); Bilirubin, Total 0.2 mg/dL (0.3-1.2); Cardiac Risk 4.8 (Less than 4.5); Cholesterol 179 mg/dl (< 200 Desired); HDL Cholesterol 37 mg/dL (>60 Neg Risk); LDL Cholesterol, Calculated 118 mg/dL; Triglycerides 119 mg/dL (Less than 150)
[2025-02-12] MEDS: Spironolactone 25 MG TAB PO SCH (09:42)
[2025-02-12] MEDS: Aspirin 81 mg Enteric Coated Tablet PO SCH (09:42)
[2025-02-12] MEDS: hydrALAZINE 20 MG/ML VIAL SLOW IVP PRN (16:57)
[2025-02-12] MEDS: cloNIDine 0.1mg/24 Hour PATCH TD SCH (16:57)
[2025-02-12] MEDS: Apixaban 5 MG TAB PO SCH (20:05)
[2025-02-13 05:43] LABS: #Basophils 0.03 10x3/uL (0.0-0.2); #Eosinophils 0.06 10x3/uL (0.0-0.7); #Monocytes 0.51 10x3/uL (0.11-0.59); #Neutrophils 5.75 10x3/uL (1.40-6.50); %Basophils 0.4 % (0.0-1.0); %Eosinophils 0.8 % (0.0-10.0); %Lymphocytes 11.9 % (21.0-51.0); %Monocytes 7.1 % (0.0-10.0); %Neutrophils 79.5 % (42.0-75.0); Hematocrit 47.0 % (42.0-52.0); Hemoglobin 15.7 g/dL (14.0-18.0); Mean Corpuscular Hemoglobin 29.1 pg (27.0-31.0); Mean Corpuscular Volume 87.2 fL (78.0-98.0); Platelet Count 378 10x3/uL (130-400); Red Blood Cell (RBC) Count 5.39 mill/uL (4.70-6.10); White Blood Cell (WBC) Count 7.23 10x3/uL (4.8-10.8)
[2025-02-13 05:51] LABS: Anion Gap 15 mmol/L (10-20); BUN (Urea Nitrogen) 30 mg/dL (8.4-25.7); Calc. Creatinine Clearance 64 mL/min (70-130); Calcium 8.9 mg/dL (7.8-10.44); Carbon Dioxide 22 mmol/L (22-29); Chloride 102 mmol/L (98-107); Glucose 158 mg/dL (70-105); Magnesium 2.1 mg/dL (1.6-2.6); Potassium 4.0 mmol/L (3.5-5.1); Sodium 135 mmol/L (136-145)
[2025-02-13] MEDS: Carvedilol 6.25 MG TAB PO SCH ×2 (09:28→16:26)
[2025-02-13] MEDS ORDERED: Cyclobenzaprine 10 MG TAB PO PRN (10:23)
[2025-02-13] MEDS: Cyclobenzaprine 10 MG TAB PO SCH (12:10)
[2025-02-13 13:25] LABS: Hematocrit 44.0 % (42.0-52.0); Hemoglobin 14.1 g/dL (14.0-18.0); Platelet Count 397 10x3/uL (130-400)
[2025-02-14 04:54] VITALS: BMI 21.0
[2025-02-14 05:25] LABS: #Basophils 0.03 10x3/uL (0.0-0.2); #Eosinophils 0.11 10x3/uL (0.0-0.7); #Monocytes 0.51 10x3/uL (0.11-0.59); #Neutrophils 4.34 10x3/uL (1.40-6.50); %Basophils 0.5 % (0.0-1.0); %Eosinophils 1.7 % (0.0-10.0); %Lymphocytes 22.7 % (21.0-51.0); %Monocytes 7.9 % (0.0-10.0); %Neutrophils 66.7 % (42.0-75.0); Hematocrit 41.2 % (42.0-52.0); Hemoglobin 13.4 g/dL (14.0-18.0); Mean Corpuscular Hemoglobin 28.7 pg (27.0-31.0); Mean Corpuscular Volume 88.2 fL (78.0-98.0); Platelet Count 361 10x3/uL (130-400); Red Blood Cell (RBC) Count 4.67 mill/uL (4.70-6.10); White Blood Cell (WBC) Count 6.49 10x3/uL (4.8-10.8)
[2025-02-14 05:36] LABS: Anion Gap 15 mmol/L (10-20); BUN (Urea Nitrogen) 24 mg/dL (8.4-25.7); Calc. Creatinine Clearance 71 mL/min (70-130); Calcium 8.6 mg/dL (7.8-10.44); Carbon Dioxide 23 mmol/L (22-29); Chloride 103 mmol/L (98-107); Glucose 131 mg/dL (70-105); Magnesium 2.1 mg/dL (1.6-2.6); Potassium 4.1 mmol/L (3.5-5.1); Sodium 137 mmol/L (136-145)
[2025-02-15 04:59] LABS: #Basophils 0.05 10x3/uL (0.0-0.2); #Eosinophils 0.10 10x3/uL (0.0-0.7); #Monocytes 0.41 10x3/uL (0.11-0.59); #Neutrophils 2.89 10x3/uL (1.40-6.50); %Basophils 1.0 % (0.0-1.0); %Eosinophils 2.1 % (0.0-10.0); %Lymphocytes 28.7 % (21.0-51.0); %Monocytes 8.4 % (0.0-10.0); %Neutrophils 59.4 % (42.0-75.0); Hematocrit 43.1 % (42.0-52.0); Hemoglobin 14.0 g/dL (14.0-18.0); Mean Corpuscular Hemoglobin 28.9 pg (27.0-31.0); Mean Corpuscular Volume 88.9 fL (78.0-98.0); Platelet Count 355 10x3/uL (130-400); Red Blood Cell (RBC) Count 4.85 mill/uL (4.70-6.10); White Blood Cell (WBC) Count 4.87 10x3/uL (4.8-10.8)
[2025-02-15 05:09] LABS: Anion Gap 12 mmol/L (10-20); BUN (Urea Nitrogen) 23 mg/dL (8.4-25.7); Calc. Creatinine Clearance 82 mL/min (70-130); Calcium 8.8 mg/dL (7.8-10.44); Carbon Dioxide 20 mmol/L (22-29); Chloride 105 mmol/L (98-107); Glucose 120 mg/dL (70-105); Potassium 4.5 mmol/L (3.5-5.1); Sodium 132 mmol/L (136-145)
[2025-02-15 17:38] LABS: Hematocrit 46.7 % (42.0-52.0); Hemoglobin 15.2 g/dL (14.0-18.0); Platelet Count 425 10x3/uL (130-400)
[2025-02-16 05:37] LABS: #Basophils 0.06 10x3/uL (0.0-0.2); #Eosinophils 0.10 10x3/uL (0.0-0.7); #Monocytes 0.49 10x3/uL (0.11-0.59); #Neutrophils 3.00 10x3/uL (1.40-6.50); %Basophils 1.1 % (0.0-1.0); %Eosinophils 1.9 % (0.0-10.0); %Lymphocytes 30.0 % (21.0-51.0); %Monocytes 9.3 % (0.0-10.0); %Neutrophils 57.1 % (42.0-75.0); Hematocrit 44.5 % (42.0-52.0); Hemoglobin 14.6 g/dL (14.0-18.0); Mean Corpuscular Hemoglobin 29.2 pg (27.0-31.0); Mean Corpuscular Volume 89.0 fL (78.0-98.0); Platelet Count 392 10x3/uL (130-400); Red Blood Cell (RBC) Count 5.00 mill/uL (4.70-6.10); White Blood Cell (WBC) Count 5.26 10x3/uL (4.8-10.8)
[2025-02-16 05:47] LABS: Anion Gap 13 mmol/L (10-20); BUN (Urea Nitrogen) 30 mg/dL (8.4-25.7); Calc. Creatinine Clearance 72 mL/min (70-130); Calcium 9.4 mg/dL (7.8-10.44); Carbon Dioxide 24 mmol/L (22-29); Chloride 104 mmol/L (98-107); Glucose 108 mg/dL (70-105); Potassium 5.0 mmol/L (3.5-5.1); Sodium 136 mmol/L (136-145)
[2025-02-17 06:06] LABS: #Basophils 0.06 10x3/uL (0.0-0.2); #Eosinophils 0.11 10x3/uL (0.0-0.7); #Monocytes 0.49 10x3/uL (0.11-0.59); #Neutrophils 3.01 10x3/uL (1.40-6.50); %Basophils 1.1 % (0.0-1.0); %Eosinophils 2.0 % (0.0-10.0); %Lymphocytes 34.2 % (21.0-51.0); %Monocytes 8.7 % (0.0-10.0); %Neutrophils 53.5 % (42.0-75.0); Hematocrit 48.7 % (42.0-52.0); Hemoglobin 15.6 g/dL (14.0-18.0); Mean Corpuscular Hemoglobin 28.5 pg (27.0-31.0); Mean Corpuscular Volume 89.0 fL (78.0-98.0); Platelet Count 432 10x3/uL (130-400); Red Blood Cell (RBC) Count 5.47 mill/uL (4.70-6.10); White Blood Cell (WBC) Count 5.62 10x3/uL (4.8-10.8)
[2025-02-17 06:21] LABS: Anion Gap 13 mmol/L (10-20); BUN (Urea Nitrogen) 27 mg/dL (8.4-25.7); Calc. Creatinine Clearance 66 mL/min (70-130); Calcium 9.8 mg/dL (7.8-10.44); Carbon Dioxide 26 mmol/L (22-29); Chloride 99 mmol/L (98-107); Glucose 130 mg/dL (70-105); Potassium 5.0 mmol/L (3.5-5.1); Sodium 133 mmol/L (136-145)
[2025-02-17 08:21] VITALS: BP 150/91; TEMP 97.7
== END 2025-02-17 10:50 | disposition home or self-care (01) | DRG 280 ==
LOC: ERS 02:40 → ERHOLD 04:53 → IMCU/EMU 10:25 → OBS 02-12 16:29
PROVIDERS: ADMIT Internal Medicine; ATTEND Hospitalist
DX: I21.4 Non-ST elevation (NSTEMI) myocardial infarction (principal); I50.23 Acute on chronic systolic (congestive) heart failure; I11.0 Hypertensive heart disease with heart failure; I25.5 Ischemic cardiomyopathy; F20.9 Schizophrenia, unspecified; F17.210 Nicotine dependence, cigarettes, uncomplicated; I16.0 Hypertensive urgency; K59.00 Constipation, unspecified; E11.9 Type 2 diabetes mellitus without complications; F14.10 Cocaine abuse, uncomplicated; E78.5 Hyperlipidemia, unspecified; Z86.711 Personal history of pulmonary embolism; Z88.8 Allergy status to other drugs, medicaments and biological substances; Z98.890 Other specified postprocedural states; Z82.49 Family history of ischemic heart disease and other diseases of the circulatory system; Z79.899 Other long term (current) drug therapy
CPT/HCPCS: 36415; 36416; 71045; 71275; 74174; 78452; 80048; 80053; 80061; 80076; 80306; 80307; 81001; 82805; 83605; 83690; 83735; 83880; 84484; 85014; 85018; 85025; 85049; 85610; 85730; 86850; 86900; 86901; 93005; 93017; 93306; 96365; 96366; 96367; 96375; 97139; A9502; J0360; J0696; J1644; J1815; J1940; J2270; J2405; J2785; J3010; Q9967

== ENCOUNTER 2025-03-17 23:33 | Inpatient (IN) | payer OTHER ==
[2025-03-18 00:16] LABS: #Basophils 0.06 10x3/uL (0.0-0.2); #Eosinophils 0.09 10x3/uL (0.0-0.7); #Monocytes 0.51 10x3/uL (0.11-0.59); #Neutrophils 3.79 10x3/uL (1.40-6.50); %Basophils 1.0 % (0.0-1.0); %Eosinophils 1.5 % (0.0-10.0); %Lymphocytes 25.4 % (21.0-51.0); %Monocytes 8.5 % (0.0-10.0); %Neutrophils 62.9 % (42.0-75.0); Hematocrit 36.3 % (42.0-52.0); Hemoglobin 11.8 g/dL (14.0-18.0); Mean Corpuscular Hemoglobin 28.5 pg (27.0-31.0); Mean Corpuscular Volume 87.7 fL (78.0-98.0); Platelet Count 296 10x3/uL (130-400); Red Blood Cell (RBC) Count 4.14 mill/uL (4.70-6.10); White Blood Cell (WBC) Count 6.02 10x3/uL (4.8-10.8)
[2025-03-18 00:33] LABS: ALT (SGPT) 26 U/L (Less than 45); AST (SGOT) 71 U/L (11-34); Albumin 2.5 g/dL (3.1-4.5); Alkaline Phosphatase 132 U/L (40-110); Anion Gap 13 mmol/L (10-20); BUN (Urea Nitrogen) 21 mg/dL (8.4-25.7); Bilirubin, Total 0.3 mg/dL (0.3-1.2); CK (CPK) 256 U/L (30-200); Calc. Creatinine Clearance 0 mL/min (70-130); Calcium 8.3 mg/dL (7.8-10.44); Carbon Dioxide 23 mmol/L (22-29); Chloride 114 mmol/L (98-107); Globulin 3.4 g/dL (2.4-3.5); Glucose 138 mg/dL (70-105); Magnesium 1.9 mg/dL (1.6-2.6); Potassium 4.0 mmol/L (3.5-5.1); Sodium 146 mmol/L (136-145)
[2025-03-18] MEDS ORDERED: Senokot S 8.6-50 MG TAB PO PRN (05:13)
[2025-03-18] MEDS ORDERED: Calcium Carbonate 500 MG ChewTAB PO PRN (05:13)
[2025-03-18] MEDS ORDERED: Melatonin 3 MG TAB PO PRN (05:13)
[2025-03-18] MEDS ORDERED: Ondansetron PF 4 MG/2 ML Vial IVP PRN (05:13)
[2025-03-18] MEDS ORDERED: Electrolyte Replacement Protocol 1 EACH FS SCH (05:15)
[2025-03-18 05:33] LABS: Cocaine Metabolite Screen PRELIM POSITIVE (Negative); THC/Cannabinoid Screen Negative (Negative); Tricyclic Screen Negative (Negative)
[2025-03-18 07:19] VITALS: BMI 23.7
[2025-03-18] MEDS ORDERED: Lisinopril 20 MG TAB ONE (07:30)
[2025-03-18] MEDS ORDERED: Magnesium 2 GM/50 ML BAG (IN WATER) ONE (07:30)
[2025-03-18] MEDS ORDERED: Enoxaparin 80 MG (0.8 mL) SYRINGE ONE (07:30)
[2025-03-18] MEDS ORDERED: Pantoprazole 40 MG DR.TAB ONE (07:30)
[2025-03-18] MEDS: Lisinopril 20 MG TAB PO SCH ×3 (08:08→20:57)
[2025-03-18] MEDS: Magnesium 2 GM/50 ML(in water) 2 GM in Premix 1 BAG IVPB SCH (08:08)
[2025-03-18] MEDS: Enoxaparin 80 MG (0.8 mL) SYRINGE SC SCH ×2 (08:08→20:51)
[2025-03-18] MEDS: Pantoprazole 40 MG DR.TAB PO SCH (08:09)
[2025-03-18] MEDS ORDERED: Enoxaparin 40 MG (0.4 mL) SYRINGE SC SCH (09:00)
[2025-03-18] MEDS ORDERED: Furosemide 40 MG (4 mL) VIAL ONE (11:54)
[2025-03-18] MEDS: Furosemide 40 MG (4 mL) VIAL SLOW IVP SCH (11:57)
[2025-03-18] MEDS: Nitroglycerin 0.2mg/Hour PATCH TD SCH (19:04)
[2025-03-19] MEDS: Acetaminophen 325 MG TAB PO PRN (02:52)
[2025-03-19] MEDS: cloNIDine 0.1 MG TAB PO SCH (03:35)
[2025-03-19 04:51] LABS: #Basophils 0.07 10x3/uL (0.0-0.2); #Eosinophils 0.14 10x3/uL (0.0-0.7); #Monocytes 0.55 10x3/uL (0.11-0.59); #Neutrophils 4.04 10x3/uL (1.40-6.50); %Basophils 1.0 % (0.0-1.0); %Eosinophils 2.1 % (0.0-10.0); %Lymphocytes 27.4 % (21.0-51.0); %Monocytes 8.2 % (0.0-10.0); %Neutrophils 60.7 % (42.0-75.0); Hematocrit 38.4 % (42.0-52.0); Hemoglobin 12.5 g/dL (14.0-18.0); Mean Corpuscular Hemoglobin 28.5 pg (27.0-31.0); Mean Corpuscular Volume 87.5 fL (78.0-98.0); Platelet Count 308 10x3/uL (130-400); Red Blood Cell (RBC) Count 4.39 mill/uL (4.70-6.10); White Blood Cell (WBC) Count 6.67 10x3/uL (4.8-10.8)
[2025-03-19 05:15] LABS: ALT (SGPT) 21 U/L (Less than 45); AST (SGOT) 54 U/L (11-34); Albumin 2.6 g/dL (3.1-4.5); Alkaline Phosphatase 126 U/L (40-110); Anion Gap 13 mmol/L (10-20); BUN (Urea Nitrogen) 19 mg/dL (8.4-25.7); Bilirubin, Total 0.2 mg/dL (0.3-1.2); Calc. Creatinine Clearance 79 mL/min (70-130); Calcium 8.9 mg/dL (7.8-10.44); Carbon Dioxide 23 mmol/L (22-29); Chloride 106 mmol/L (98-107); Globulin 3.6 g/dL (2.4-3.5); Glucose 119 mg/dL (70-105); Potassium 4.0 mmol/L (3.5-5.1); Sodium 138 mmol/L (136-145)
[2025-03-19] MEDS ORDERED: Spironolactone 25 MG TAB PO SCH (08:00)
[2025-03-19] MEDS ORDERED: Lisinopril 20 MG TAB PO SCH (09:00)
[2025-03-19] MEDS: Spironolactone 25 MG TAB PO SCH (09:01)
[2025-03-19] MEDS: Aspirin 81 mg Enteric Coated Tablet PO SCH (09:02)
[2025-03-19] MEDS: Furosemide 40 MG (4 mL) VIAL SLOW IVP SCH (09:02)
[2025-03-19] MEDS: Methocarbamol 500 MG TAB PO SCH ×2 (13:05→15:37)
[2025-03-20 04:53] LABS: #Basophils 0.06 10x3/uL (0.0-0.2); #Eosinophils 0.17 10x3/uL (0.0-0.7); #Monocytes 0.56 10x3/uL (0.11-0.59); #Neutrophils 4.65 10x3/uL (1.40-6.50); %Basophils 0.8 % (0.0-1.0); %Eosinophils 2.2 % (0.0-10.0); %Lymphocytes 30.4 % (21.0-51.0); %Monocytes 7.1 % (0.0-10.0); %Neutrophils 58.9 % (42.0-75.0); Hematocrit 40.9 % (42.0-52.0); Hemoglobin 13.4 g/dL (14.0-18.0); Mean Corpuscular Hemoglobin 28.5 pg (27.0-31.0); Mean Corpuscular Volume 86.8 fL (78.0-98.0); Platelet Count 357 10x3/uL (130-400); Red Blood Cell (RBC) Count 4.71 mill/uL (4.70-6.10); White Blood Cell (WBC) Count 7.89 10x3/uL (4.8-10.8)
[2025-03-20 05:10] LABS: Anion Gap 14 mmol/L (10-20); BUN (Urea Nitrogen) 18 mg/dL (8.4-25.7); Calc. Creatinine Clearance 69 mL/min (70-130); Calcium 9.2 mg/dL (7.8-10.44); Carbon Dioxide 25 mmol/L (22-29); Chloride 101 mmol/L (98-107); Glucose 123 mg/dL (70-105); Potassium 4.7 mmol/L (3.5-5.1); Sodium 135 mmol/L (136-145)
[2025-03-20 12:04] VITALS: BP 134/78; TEMP 97.7
== END 2025-03-20 12:45 | disposition home or self-care (01) | DRG 313 ==
LOC: ERS 23:33 → ERHOLD 03-18 05:13 → 2NO 03-18 16:53 → OBSVTOIN 03-19 13:34
PROVIDERS: ADMIT Internal Medicine; ATTEND Hospitalist
DX: R07.89 Other chest pain (principal); J96.01 Acute respiratory failure with hypoxia; I50.23 Acute on chronic systolic (congestive) heart failure; I42.8 Other cardiomyopathies; Z88.8 Allergy status to other drugs, medicaments and biological substances; Z79.899 Other long term (current) drug therapy; Z98.890 Other specified postprocedural states; Z72.0 Tobacco use; F19.10 Other psychoactive substance abuse, uncomplicated; E11.9 Type 2 diabetes mellitus without complications; E78.5 Hyperlipidemia, unspecified; I11.0 Hypertensive heart disease with heart failure; F14.10 Cocaine abuse, uncomplicated
CPT/HCPCS: 36415; 36416; 71045; 80048; 80053; 80306; 82550; 83735; 83880; 84484; 85025; 93005; 93010; 94640; 94760; 96372; 96374; 96375; 96376; G0378; J1650; J1940; J3475

== ENCOUNTER 2025-04-13 19:55 | Inpatient (IN) | payer OTHER ==
[2025-04-13 20:54] LABS: #Basophils 0.05 10x3/uL (0.0-0.2); #Eosinophils 0.16 10x3/uL (0.0-0.7); #Monocytes 0.38 10x3/uL (0.11-0.59); #Neutrophils 5.11 10x3/uL (1.40-6.50); %Basophils 0.7 % (0.0-1.0); %Eosinophils 2.2 % (0.0-10.0); %Lymphocytes 22.0 % (21.0-51.0); %Monocytes 5.2 % (0.0-10.0); %Neutrophils 69.6 % (42.0-75.0); Hematocrit 37.7 % (42.0-52.0); Hemoglobin 11.9 g/dL (14.0-18.0); Mean Corpuscular Hemoglobin 27.9 pg (27.0-31.0); Mean Corpuscular Volume 88.3 fL (78.0-98.0); Platelet Count 231 10x3/uL (130-400); Red Blood Cell (RBC) Count 4.27 mill/uL (4.70-6.10); White Blood Cell (WBC) Count 7.33 10x3/uL (4.8-10.8)
[2025-04-13 21:08] LABS: ALT (SGPT) 17 U/L (Less than 45); AST (SGOT) 51 U/L (11-34); Albumin 2.6 g/dL (3.1-4.5); Alkaline Phosphatase 90 U/L (40-110); Anion Gap 12 mmol/L (10-20); BUN (Urea Nitrogen) 29 mg/dL (8.4-25.7); Bilirubin, Total 0.3 mg/dL (0.3-1.2); Calc. Creatinine Clearance 0 mL/min (70-130); Calcium 8.6 mg/dL (7.8-10.44); Carbon Dioxide 25 mmol/L (22-29); Chloride 112 mmol/L (98-107); Globulin 3.4 g/dL (2.4-3.5); Glucose 105 mg/dL (70-105); Potassium 4.2 mmol/L (3.5-5.1); Sodium 145 mmol/L (136-145)
[2025-04-13 21:11] LABS: INR-International Normal Ratio 1.1; PTT 26.3 sec (22.9-36.1); Prothrombin Time 14.7 sec (12.0-14.7)
[2025-04-13] MEDS ORDERED: Furosemide 40 MG (4 mL) VIAL ONE (21:14)
[2025-04-13 21:38] LABS: Actual Bicarbonate (HCO3v) 22.6 mEq/L (22-28); Base Excess -1.1 mEq/L (-2.0 to +3.0); Calcium, Ionized (venous) 1.13 mmol/L (1.16-1.32); Chloride (VBG) 108 mmol/L (98-106); Hematocrit-VBG 39 % (42.0-52.0); Hemoglobin (Hb) 13.3 g/dL (13.1-17.2); Potassium (VBG) 4.25 mmol/L (3.70-5.30); Sodium 141 mmol/L (133-146)
[2025-04-13] MEDS ORDERED: Ondansetron PF 4 MG/2 ML Vial IVP PRN (23:52)
[2025-04-14] MEDS ORDERED: Glucagon 1 MG/ML KIT IM PRN (00:29)
[2025-04-14] MEDS ORDERED: Dextrose 50% Abboject 50 ML SYRINGE SLOW IVP PRN (00:29)
[2025-04-14] MEDS: Acetaminophen 325 MG TAB PO PRN (03:06)
[2025-04-14 03:45] LABS: #Basophils 0.04 10x3/uL (0.0-0.2); #Eosinophils 0.12 10x3/uL (0.0-0.7); #Monocytes 0.42 10x3/uL (0.11-0.59); #Neutrophils 4.49 10x3/uL (1.40-6.50); %Basophils 0.6 % (0.0-1.0); %Eosinophils 1.8 % (0.0-10.0); %Lymphocytes 23.4 % (21.0-51.0); %Monocytes 6.3 % (0.0-10.0); %Neutrophils 67.7 % (42.0-75.0); Hematocrit 40.5 % (42.0-52.0); Hemoglobin 12.6 g/dL (14.0-18.0); Mean Corpuscular Hemoglobin 27.9 pg (27.0-31.0); Mean Corpuscular Volume 89.8 fL (78.0-98.0); Platelet Count 222 10x3/uL (130-400); Red Blood Cell (RBC) Count 4.51 mill/uL (4.70-6.10); White Blood Cell (WBC) Count 6.63 10x3/uL (4.8-10.8)
[2025-04-14 03:50] LABS: Cocaine Metabolite Screen PRELIM POSITIVE (Negative); THC/Cannabinoid Screen Negative (Negative); Tricyclic Screen Negative (Negative)
[2025-04-14 04:08] LABS: Anion Gap 16 mmol/L (10-20); BUN (Urea Nitrogen) 25 mg/dL (8.4-25.7); Calc. Creatinine Clearance 59 mL/min (70-130); Calcium 8.7 mg/dL (7.8-10.44); Carbon Dioxide 22 mmol/L (22-29); Chloride 108 mmol/L (98-107); Glucose 105 mg/dL (70-105); Magnesium 1.9 mg/dL (1.6-2.6); Potassium 3.9 mmol/L (3.5-5.1); Sodium 142 mmol/L (136-145)
[2025-04-14 04:09] LABS: Magnesium 1.9 mg/dL (1.6-2.6)
[2025-04-14] MEDS: Furosemide 40 MG (4 mL) VIAL SLOW IVP SCH (06:04)
[2025-04-14] MEDS: Pantoprazole 40 MG VIAL IVP SCH (08:43)
[2025-04-14] MEDS: Heparin 5,000 UNITS/ML VIAL SC SCH (08:43)
[2025-04-14 12:51] VITALS: BMI 21.3
[2025-04-14] MEDS: Carvedilol 6.25 MG TAB PO SCH (20:27)
[2025-04-14] MEDS: Apixaban 5 MG TAB PO SCH (20:27)
[2025-04-15 04:56] LABS: #Basophils 0.06 10x3/uL (0.0-0.2); #Eosinophils 0.20 10x3/uL (0.0-0.7); #Monocytes 0.52 10x3/uL (0.11-0.59); #Neutrophils 4.85 10x3/uL (1.40-6.50); %Basophils 0.9 % (0.0-1.0); %Eosinophils 2.9 % (0.0-10.0); %Lymphocytes 18.9 % (21.0-51.0); %Monocytes 7.5 % (0.0-10.0); %Neutrophils 69.5 % (42.0-75.0); Hematocrit 40.0 % (42.0-52.0); Hemoglobin 13.2 g/dL (14.0-18.0); Mean Corpuscular Hemoglobin 28.4 pg (27.0-31.0); Mean Corpuscular Volume 86.2 fL (78.0-98.0); Platelet Count 268 10x3/uL (130-400); Red Blood Cell (RBC) Count 4.64 mill/uL (4.70-6.10); White Blood Cell (WBC) Count 6.97 10x3/uL (4.8-10.8)
[2025-04-15 05:11] LABS: Anion Gap 10 mmol/L (10-20); BUN (Urea Nitrogen) 24 mg/dL (8.4-25.7); Calc. Creatinine Clearance 70 mL/min (70-130); Calcium 8.6 mg/dL (7.8-10.44); Carbon Dioxide 27 mmol/L (22-29); Chloride 104 mmol/L (98-107); Glucose 111 mg/dL (70-105); Magnesium 1.8 mg/dL (1.6-2.6); Potassium 4.1 mmol/L (3.5-5.1); Sodium 137 mmol/L (136-145)
[2025-04-15] MEDS: Aspirin 81 mg Enteric Coated Tablet PO SCH (08:32)
[2025-04-15] MEDS: Furosemide 40 MG TAB PO SCH (09:11)
[2025-04-16 04:47] LABS: #Basophils 0.04 10x3/uL (0.0-0.2); #Eosinophils 0.13 10x3/uL (0.0-0.7); #Monocytes 0.57 10x3/uL (0.11-0.59); #Neutrophils 4.11 10x3/uL (1.40-6.50); %Basophils 0.6 % (0.0-1.0); %Eosinophils 2.1 % (0.0-10.0); %Lymphocytes 21.5 % (21.0-51.0); %Monocytes 9.2 % (0.0-10.0); %Neutrophils 66.3 % (42.0-75.0); Hematocrit 38.9 % (42.0-52.0); Hemoglobin 12.6 g/dL (14.0-18.0); Mean Corpuscular Hemoglobin 28.1 pg (27.0-31.0); Mean Corpuscular Volume 86.8 fL (78.0-98.0); Platelet Count 258 10x3/uL (130-400); Red Blood Cell (RBC) Count 4.48 mill/uL (4.70-6.10); White Blood Cell (WBC) Count 6.20 10x3/uL (4.8-10.8)
[2025-04-16 05:18] LABS: ALT (SGPT) 11 U/L (Less than 45); AST (SGOT) 33 U/L (11-34); Albumin 2.5 g/dL (3.1-4.5); Alkaline Phosphatase 77 U/L (40-110); Anion Gap 7 mmol/L (10-20); BUN (Urea Nitrogen) 20 mg/dL (8.4-25.7); Bilirubin, Total 0.2 mg/dL (0.3-1.2); Calc. Creatinine Clearance 77 mL/min (70-130); Calcium 8.7 mg/dL (7.8-10.44); Carbon Dioxide 29 mmol/L (22-29); Chloride 102 mmol/L (98-107); Globulin 3.4 g/dL (2.4-3.5); Glucose 103 mg/dL (70-105); Magnesium 1.7 mg/dL (1.6-2.6); Potassium 4.0 mmol/L (3.5-5.1); Sodium 134 mmol/L (136-145)
[2025-04-16] MEDS: Nitroglycerin 0.4 MG TAB (25 Tab Bottle) SL PRN (08:28)
[2025-04-17 06:00] LABS: #Basophils 0.05 10x3/uL (0.0-0.2); #Eosinophils 0.17 10x3/uL (0.0-0.7); #Monocytes 0.60 10x3/uL (0.11-0.59); #Neutrophils 3.01 10x3/uL (1.40-6.50); %Basophils 0.9 % (0.0-1.0); %Eosinophils 3.0 % (0.0-10.0); %Lymphocytes 33.1 % (21.0-51.0); %Monocytes 10.5 % (0.0-10.0); %Neutrophils 52.3 % (42.0-75.0); Hematocrit 41.9 % (42.0-52.0); Hemoglobin 13.5 g/dL (14.0-18.0); Mean Corpuscular Hemoglobin 27.9 pg (27.0-31.0); Mean Corpuscular Volume 86.6 fL (78.0-98.0); Platelet Count 279 10x3/uL (130-400); Red Blood Cell (RBC) Count 4.84 mill/uL (4.70-6.10); White Blood Cell (WBC) Count 5.74 10x3/uL (4.8-10.8)
[2025-04-17 06:21] LABS: ALT (SGPT) 8 U/L (Less than 45); AST (SGOT) 36 U/L (11-34); Albumin 2.7 g/dL (3.1-4.5); Alkaline Phosphatase 80 U/L (40-110); Anion Gap 9 mmol/L (10-20); BUN (Urea Nitrogen) 22 mg/dL (8.4-25.7); Bilirubin, Total 0.2 mg/dL (0.3-1.2); Calc. Creatinine Clearance 71 mL/min (70-130); Calcium 8.8 mg/dL (7.8-10.44); Carbon Dioxide 28 mmol/L (22-29); Chloride 104 mmol/L (98-107); Globulin 3.8 g/dL (2.4-3.5); Glucose 107 mg/dL (70-105); Magnesium 1.8 mg/dL (1.6-2.6); Potassium 4.4 mmol/L (3.5-5.1); Sodium 137 mmol/L (136-145)
[2025-04-17 08:44] VITALS: TEMP 97.8
[2025-04-17 14:04] VITALS: BP 130/82
== END 2025-04-17 14:06 | disposition home or self-care (01) | DRG 291 ==
LOC: ERS 19:55 → ERHOLD 22:14 → IMCU/EMU 04-14 00:54 → OBS 04-14 12:24
PROVIDERS: ADMIT Internal Medicine; ATTEND Internal Medicine
PROC: 5A09357 Assistance with Respiratory Ventilation, Less than 24 Consecutive Hours, Continuous Positive Airway Pressure (ICD-10-PCS; principal; 2025-04-14)
DX: I11.0 Hypertensive heart disease with heart failure (principal); G92.8 Other toxic encephalopathy; G93.41 Metabolic encephalopathy; J96.01 Acute respiratory failure with hypoxia; I50.43 Acute on chronic combined systolic (congestive) and diastolic (congestive) heart failure; Z59.00 Homelessness unspecified; F14.23 Cocaine dependence with withdrawal; N17.9 Acute kidney failure, unspecified; T40.5X1A Poisoning by cocaine, accidental (unintentional), initial encounter; I42.8 Other cardiomyopathies; I5A Non-ischemic myocardial injury (non-traumatic); I08.3 Combined rheumatic disorders of mitral, aortic and tricuspid valves; E11.9 Type 2 diabetes mellitus without complications; Z91.148 Patient's other noncompliance with medication regimen for other reason; Z88.8 Allergy status to other drugs, medicaments and biological substances; Z88.2 Allergy status to sulfonamides; Z86.711 Personal history of pulmonary embolism; Z79.82 Long term (current) use of aspirin; Z79.899 Other long term (current) drug therapy; Z98.890 Other specified postprocedural states; F10.10 Alcohol abuse, uncomplicated; F17.210 Nicotine dependence, cigarettes, uncomplicated; E78.00 Pure hypercholesterolemia, unspecified; Z93.3 Colostomy status; Z88.6 Allergy status to analgesic agent; D64.9 Anemia, unspecified
CPT/HCPCS: 36415; 36416; 71045; 80048; 80053; 80306; 80307; 82805; 83605; 83735; 83880; 84484; 85025; 85610; 85730; 87040; 93005; 93010; 94660; 96374; J1644; J1940; J2470